=== PATIENT | female | born 1965 | race Caucasian/White ===

== ENCOUNTER 2017-10-31 18:28 | Observation (INO) ==
[2017-10-31] MEDS ORDERED: *HR* HYDROmorphone (PF) 1 MG/ML SYRINGE IVP ONE (19:04)
[2017-10-31] MEDS ORDERED: 0.9 % Sodium Chloride 1,000 ML IVC ONE ×2 (19:04→20:57)
[2017-10-31] MEDS ORDERED: Ondansetron 4 MG/2 ML VIAL IVP ONE (19:04)
--- NOTE | 2017-10-31 19:19 | Emergency Department Note ---
Disposition Clinical Impression: Pancreatitis Qualifiers: Chronicity: acute Pancreatitis type: unspecified pancreatitis type Acute pancreatitis complication: unspecified Qualified Code(s): K85.90 - Acute pancreatitis without necrosis or infection, unspecified Disposition: Admitted As Inpatient Condition: Good Referrals: Nellie Newton CNP [Primary Care Provider] - Abdominal Pain HPI - General Chief Complaint: ED Abdominal Pain Stated Complaint: abd pain Time Seen by Provider: 10/31/17 18:45 Source: patient Mode of arrival: ambulatory Limitations: no limitations Nursing Notes Reviewed: Yes Vital Signs Reviewed: Yes - History of Present Illness HPI Narrative: Patient presents for evaluation of abdominal pain. Patient has had abdominal pain for [address] scan yesterday with abnormal pancreas recommendation for IV contrast scan. Patient received this today which is also abnormal showing pancreatitis is been referred to the emergency department for further evaluation. Patient has no history of pancreatitis. Patient does have previous surgical scar from previous trauma. Patient has a known removal of appendix or other. The patient states that she did have Copt Ary healing from this due to infected surgical mesh. The patient's symptoms are associated with nausea with eating. Nothing is improved her symptoms. The patient states she has diabetes and her blood sugars have been running abnormally high secondary to this. No history of ibuprofen or alcohol use. Pain Scale: 8 - Related Data Home Medications Medication Instructions Recorded Confirmed Atorvastatin [Lipitor] 40 mg PO HS 08/29/16 10/31/17 Black Cohosh 40 mg PO QAM 08/29/16 10/31/17 Docusate [Colace] 100 mg PO BID 08/29/16 10/31/17 Insulin DETEMIR [Levemir Flextouch] 43 unit SQ BID 08/29/16 10/31/17 Metformin HCl [Glucophage] 1,000 mg PO BID 08/29/16 10/31/17 Multivitamin [One Daily Essential] 1 tab PO DAILY 08/29/16 10/31/17 Omeprazole [PriLOSEC] 40 mg PO DAILY 08/29/16 10/31/17 Quetiapine Fumarate [SEROquel] 600 mg PO HS 08/29/16 10/31/17 Venlafaxine HCl [Venlafaxine HCl 150 mg PO BID 08/29/16 10/31/17 ER] Dulaglutide [Trulicity] 0.75 mg SQ TH 10/31/17 10/31/17 Gabapentin [Neurontin] 800 mg PO TID 10/31/17 10/31/17 Insulin ASPART [Novolog Flexpen] 0 - 5 unit SQ TID PRN 10/31/17 10/31/17 Ranitidine HCl [Zantac] 300 mg PO DAILY 10/31/17 10/31/17 Allergies Allergy/AdvReac Type Severity Reaction Status Date / Time No Known Allergies Allergy Verified 10/31/17 18:43 Review of Systems: CONSTITUTIONAL: No weight loss, fever, chills, weakness or fatigue. HEENT: Eyes: No visual changes. Ears, Nose, Throat: No hearing loss, difficulty talking or unable to swallow. SKIN: No rash or itching. CARDIOVASCULAR: No chest pain, chest pressure or chest discomfort. No palpitations or edema. RESPIRATORY: No shortness of breath, cough or sputum. GASTROINTESTINAL: Nausea vomiting and abdominal pain GENITOURINARY: No burning on urination or hematuria. NEUROLOGICAL: No headache, dizziness, syncope, paralysis, ataxia, numbness or tingling in the extremities. No change in bowel or bladder control. MUSCULOSKELETAL: No muscle pain, back pain, joint pain or stiffness. 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: Reports: non-contributory Psychiatric history: Reports: anxiety, bipolar, depression - Social History Smoking status: Current every day smoker Alcohol use: Reports: none Drug use: Reports: none Physical Exam General: Well appearing, nontoxic, no acute distress Head: Normocephalic Atraumatic Eyes: PERRL, EOMI ENT: Airway patent, no stridor Neck: supple, no meningismus Chest: Lungs clear to auscultation bilateral Cardiac: Regular rate and rhythm, no murmurs, rubs or gallops Abdomen: soft, tenderness to the epigastric and right upper quadrant; nondistended; no guarding, rebound, or tenderness to percussion Musculoskeletal: Calves symmetric, nontender, no palpable cord Skin: No rash, normal skin tone Neuro: Alert and Oriented to person, place, and time; No focal deficit, CN 2-12 symmetric and intact - General Limitations: no limitations General appearance: alert, in no apparent distress Course - Reevaluation(s) Reevaluation #1: Patient is having continued pain. Dilaudid shortage. Ketamine will be used. Patient is been educated about pancreatitis. She states she has not had previously. - Consultations Consultation #1: Discussed with Dr. Morgan. Patient accepted for admission. Vital Signs Temperature 99.2 F 10/31/17 18:40 Pulse Rate 118 10/31/17 18:40 Respiratory Rate 16 10/31/17 18:40 Blood Pressure 153/86 10/31/17 18:40 O2 Sat by Pulse Oximetry 96 10/31/17 18:40 Temperature 99.2 F 10/31/17 18:40 Pulse Rate 118 10/31/17 18:40 Respiratory Rate 16 10/31/17 18:40 Blood Pressure 153/86 10/31/17 18:40 O2 Sat by Pulse Oximetry 96 10/31/17 18:40 Oxygen Delivery Oxygen Delivery Room Air Abdominal Pain - Medical Records Medical records reviewed: Yes I reviewed the patient's medical records. - Lab Data Lab results reviewed: Yes I reviewed the patient's lab results. Result diagrams: 10/31/17 19:50 10/31/17 19:50 Lab Results 10/31/17 10/31/17 Range/Units 19:50 19:50 WBC 12.2 H (4.3-11.1) K/mcL RBC 5.43 H (3.82-4.97) M/mcL Hgb 14.6 (11.5-15.4) g/dL Hct 45.2 H (35.3-44.9) % MCV 83.2 (83.0-100.0) fL MCH 26.9 L (28.0-33.3) pg MCHC 32.3 (31.6-35.5) g/dL RDW 15.4 H (11.5-14.5) % Plt Count 356 (140-400) K/mcL MPV 9.8 (9.4-12.4) fL Immature Gran % 0.5 (0-4) % Seg Neutrophils % 53.5 % Lymphocytes % 33.9 % Monocytes % 5.5 % Eosinophils % 5.7 % Basophils % 0.9 % Neutrophils # 6.5 (1.6-8.9) K/mcL Lymphocytes # 4.1 (0.6-4.6) K/mcL Monocytes # 0.7 (0.0-1.3) K/mcL Eosinophils # 0.7 H (0.0-0.6) K/mcL Basophils # 0.1 (0.0-0.2) K/mcL Sodium 135 L (136-145) mEq/L Potassium 3.8 (3.5-5.1) mEq/L Chloride 102 (98-107) mEq/L Carbon Dioxide 25 (23-29) mEq/L BUN 12 (6-20) mg/dL Creatinine 0.83 (0.60-1.20) mg/dL Est GFR ( Amer) > 60 (> 60) Est GFR (Non-Af Amer) > 60 (> 60) BUN/Creatinine Ratio 14 (6-26) Glucose 255 H (70-105) mg/dL Calculated Osmolality 288 (280-300) Calcium 9.3 (8.6-10.3) mg/dL Total Bilirubin 0.2 L (0.3-1.0) mg/dL Direct Bilirubin 0.0 (0.0-0.2) mg/dL Indirect Bilirubin 0.2 (0.0-1.2) mg/dL AST 28 (13-39) Units/L ALT 33 (7-52) Units/L Alkaline Phosphatase 120 H (34-104) Units/L Serum Total Protein 7.1 (6.4-8.9) g/dL Albumin 4.0 (3.5-5.7) g/dL Globulin 3.1 (2.4-3.5) g/dL Albumin/Globulin Ratio 1.3 (1.1-2.2) Amylase 42 (29-103) Units/L Lipase 75 (11-82) Units/L - Radiology Data Radiology results reviewed: Yes I reviewed the patient's radiology results. - EKG Data EKG attestation: Yes I reviewed and interpreted this EKG. EKG results narrative: EKG shows sinus tachycardia with a ventricular rate of 109. NH 104. QRS 108. QTC 416. No ST elevations or depressions.
[2017-10-31 19:58] LABS: Basophils # 0.1 K/mcL (0.0-0.2); Basophils % 0.9 %; Eosinophils # 0.7 K/mcL (0.0-0.6); Eosinophils % 5.7 %; Hematocrit 45.2 % (35.3-44.9); Hemoglobin 14.6 g/dL (11.5-15.4); Immature Granulocytes % 0.5 % (0-4); Lymphocytes # 4.1 K/mcL (0.6-4.6); Lymphocytes % 33.9 %; Mean Corpuscular HGB Conc 32.3 g/dL (31.6-35.5); Mean Corpuscular Hemoglobin 26.9 pg (28.0-33.3); Mean Corpuscular Volume 83.2 fL (83.0-100.0); Mean Platelet Volume 9.8 fL (9.4-12.4); Monocytes # 0.7 K/mcL (0.0-1.3); Monocytes % 5.5 %; Neutrophils # 6.5 K/mcL (1.6-8.9); Platelet Count 356 K/mcL (140-400); Red Blood Count 5.43 M/mcL (3.82-4.97); Red Cell Distribution Width 15.4 % (11.5-14.5); Segmented Neutrophils % 53.5 %
--- NOTE | 2017-10-31 20:04 | Emergency Department Note ---
START Narrative - START START: I examined this patient and my medical decision-making was reviewed with the OCCUPATIONAL HEALTH AND SAFETY MANAGER/PA/Advanced Practice Nurse/Resident Physician. I agree with the documented findings, disposition and treatment plan as described except to the extent set forth below. ED attending note: Patient seen with emergency medicine resident Dr. Jesus Simpson. We independently evaluated the patient. We independently had face-to- face contact with the patient. Please see a copy of his note for details of the history and physical, evaluation, management and disposition of this emergency Department patient. Briefly: 52-year-old female presents epigastric pain nausea and vomiting. No prior history of pancreatitis. Has mild epigastric tenderness. Getting screening labs, antiemetics, and analgesics. Disposition pending. Although admission is being entertained. Patient stable
[2017-10-31 20:14] LABS: Alanine Aminotransferase 33 Units/L (7-52); Albumin/Globulin Ratio 1.3 (1.1-2.2); Alkaline Phosphatase 120 Units/L (34-104); Amylase 42 Units/L (29-103); Aspartate Amino Transferase 28 Units/L (13-39); BUN/Creatinine Ratio 14 (6-26); Bilirubin,Indirect 0.2 mg/dL (0.0-1.2); Bilirubin,Total 0.2 mg/dL (0.3-1.0); Blood Urea Nitrogen 12 mg/dL (6-20); Calcium 9.3 mg/dL (8.6-10.3); Carbon Dioxide 25 mEq/L (23-29); Chloride 102 mEq/L (98-107); Globulin 3.1 g/dL (2.4-3.5); Glucose 255 mg/dL (70-105); Lipase 75 Units/L (11-82); Osmolality,Calculated 288 (280-300); Potassium 3.8 mEq/L (3.5-5.1); Sodium 135 mEq/L (136-145); Total Protein 7.1 g/dL (6.4-8.9); eGFR For African Americans > 60 (> 60); eGFR For Non-African Americans > 60 (> 60)
[2017-10-31] MEDS ORDERED: Ketamine *HR* 20 MG in 0.9 % Sodium Chloride 100 ML IVPB ONE (20:19)
[2017-10-31] MEDS ORDERED: Naloxone 0.4 MG/ML INJ IVP PRN (22:38)
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
[2017-10-31] MEDS ORDERED: D5% in Water 1,000 ML IVC PRN (22:43)
[2017-10-31] MEDS ORDERED: *HR* Dextrose 50 % in Water (Syg) 50 ML SYRINGE IVP PRN (22:43)
[2017-10-31] MEDS ORDERED: Dextrose Gel 15 GM/37.5 ML TUBE PO PRN ×2 (22:43)
[2017-11-01] MEDS ORDERED: Ketorolac 30 MG/ML VIAL IVP ONE (01:35)
[2017-11-01] MEDS ORDERED: OXYCODONE Oral CONC 10 MG/0.5 ML ORAL.SYG SL ONE (03:08)
[2017-11-01] MEDS: 0.9 % Sodium Chloride 1,000 ML IVC SCH ×3 (03:46→19:25)
[2017-11-01 05:00] LABS: Basophils # 0.1 K/mcL (0.0-0.2); Eosinophils # 0.6 K/mcL (0.0-0.6); Hematocrit 41.1 % (35.3-44.9); Hemoglobin 13.3 g/dL (11.5-15.4); Immature Granulocytes % 0.4 % (0-4); Lymphocytes % 32.5 %; Mean Corpuscular HGB Conc 32.4 g/dL (31.6-35.5); Mean Corpuscular Hemoglobin 27.2 pg (28.0-33.3); Mean Platelet Volume 10.1 fL (9.4-12.4); Monocytes # 0.6 K/mcL (0.0-1.3); Monocytes % 6.5 %; Neutrophils # 4.8 K/mcL (1.6-8.9); Platelet Count 304 K/mcL (140-400); Red Blood Count 4.89 M/mcL (3.82-4.97); Red Cell Distribution Width 15.6 % (11.5-14.5); Segmented Neutrophils % 52.6 %
[2017-11-01 05:27] LABS: Alanine Aminotransferase 27 Units/L (7-52); Albumin 3.5 g/dL (3.5-5.7); Albumin/Globulin Ratio 1.3 (1.1-2.2); Alkaline Phosphatase 108 Units/L (34-104); Aspartate Amino Transferase 22 Units/L (13-39); BUN/Creatinine Ratio 16 (6-26); Bilirubin,Total 0.2 mg/dL (0.3-1.0); Blood Urea Nitrogen 11 mg/dL (6-20); Calcium 8.8 mg/dL (8.6-10.3); Carbon Dioxide 25 mEq/L (23-29); Chloride 106 mEq/L (98-107); Cholesterol 161 mg/dL (< 200); Globulin 2.7 g/dL (2.4-3.5); Glucose 290 mg/dL (70-105); HDL Cholesterol 32 mg/dL (40-59); Osmolality,Calculated 300 (280-300); Potassium 3.6 mEq/L (3.5-5.1); Sodium 140 mEq/L (136-145); Total Protein 6.2 g/dL (6.4-8.9); Triglycerides 424 mg/dL (< 150); eGFR For African Americans > 60 (> 60); eGFR For Non-African Americans > 60 (> 60)
[2017-11-01] MEDS: Insulin LISPRO 300 UNITS/3 ML VIAL SQ SCH ×4 (06:00→18:15)
[2017-11-01] MEDS: Gabapentin 400 MG CAPSULE PO SCH ×3 (07:57→20:02)
[2017-11-01] MEDS: *HR* Heparin 5,000 UNIT/ML VIAL SQ SCH ×2 (08:20→18:15)
[2017-11-01] MEDS: Pantoprazole 40 MG VIAL IVP SCH (08:20)
[2017-11-01] MEDS: OXYCODONE Oral CONC 10 MG/0.5 ML ORAL.SYG SL PRN ×3 (08:22→22:54)
[2017-11-01] MEDS: Ketorolac 15 MG/ML VIAL IVP PRN (12:15)
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
[2017-11-01] MEDS: *HR* FentaNYL (PF) 100 MCG/2 ML VIAL IVP PRN ×2 (16:10→20:03)
[2017-11-01] MEDS: 0.9 % Sodium Chloride w KCl 20 MEQ/1,000 ML MLS IVC SCH (16:34)
[2017-11-02] MEDS: Insulin LISPRO 300 UNITS/3 ML VIAL SQ SCH ×4 (00:42→17:32)
[2017-11-02] MEDS: *HR* Heparin 5,000 UNIT/ML VIAL SQ SCH ×2 (05:59→17:32)
[2017-11-02] MEDS: *HR* FentaNYL (PF) 100 MCG/2 ML VIAL IVP PRN ×2 (06:00→10:35)
[2017-11-02] MEDS: Pantoprazole 40 MG VIAL IVP SCH (08:05)
[2017-11-02] MEDS: Gabapentin 400 MG CAPSULE PO SCH ×3 (08:17→19:40)
[2017-11-02 09:31] LABS: Hematocrit 42.9 % (35.3-44.9); Hemoglobin 13.3 g/dL (11.5-15.4); Mean Corpuscular Hemoglobin 26.7 pg (28.0-33.3); Mean Corpuscular Volume 86.1 fL (83.0-100.0); Mean Platelet Volume 9.8 fL (9.4-12.4); Platelet Count 290 K/mcL (140-400); Red Blood Count 4.98 M/mcL (3.82-4.97); Red Cell Distribution Width 15.7 % (11.5-14.5)
[2017-11-02 09:49] LABS: Alanine Aminotransferase 28 Units/L (7-52); Albumin 3.4 g/dL (3.5-5.7); Albumin/Globulin Ratio 1.3 (1.1-2.2); Alkaline Phosphatase 101 Units/L (34-104); Amylase 21 Units/L (29-103); Aspartate Amino Transferase 28 Units/L (13-39); BUN/Creatinine Ratio 10 (6-26); Bilirubin,Total 0.2 mg/dL (0.3-1.0); Blood Urea Nitrogen 7 mg/dL (6-20); Calcium 9.1 mg/dL (8.6-10.3); Carbon Dioxide 24 mEq/L (23-29); Chloride 112 mEq/L (98-107); Globulin 2.7 g/dL (2.4-3.5); Glucose 282 mg/dL (70-105); Lipase 33 Units/L (11-82); Osmolality,Calculated 300 (280-300); Potassium 4.3 mEq/L (3.5-5.1); Sodium 141 mEq/L (136-145); Total Protein 6.1 g/dL (6.4-8.9); eGFR For African Americans > 60 (> 60); eGFR For Non-African Americans > 60 (> 60)
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
[2017-11-02] MEDS: 0.9 % Sodium Chloride w KCl 20 MEQ/1,000 ML MLS IVC SCH ×2 (13:58→19:19)
[2017-11-02] MEDS: Ketorolac 15 MG/ML VIAL IVP PRN ×2 (14:47→23:25)
[2017-11-02] MEDS: OXYCODONE Oral CONC 10 MG/0.5 ML ORAL.SYG SL PRN (18:47)
[2017-11-03] MEDS: Insulin LISPRO 300 UNITS/3 ML VIAL SQ SCH ×5 (01:12→22:57)
[2017-11-03] MEDS: OXYCODONE Oral CONC 10 MG/0.5 ML ORAL.SYG SL PRN ×2 (01:12→10:34)
[2017-11-03] MEDS ORDERED: *HR* FentaNYL (PF) 100 MCG/2 ML VIAL IVP ONE ×2 (04:55→12:25)
[2017-11-03] MEDS: *HR* Heparin 5,000 UNIT/ML VIAL SQ SCH ×2 (05:04→17:17)
[2017-11-03] MEDS: 0.9 % Sodium Chloride w KCl 20 MEQ/1,000 ML MLS IVC SCH (05:05)
[2017-11-03 05:43] LABS: Alanine Aminotransferase 26 Units/L (7-52); Albumin 3.3 g/dL (3.5-5.7); Alkaline Phosphatase 88 Units/L (34-104); Aspartate Amino Transferase 27 Units/L (13-39); BUN/Creatinine Ratio 10 (6-26); Bilirubin,Total 0.3 mg/dL (0.3-1.0); Blood Urea Nitrogen 7 mg/dL (6-20); Calcium 8.9 mg/dL (8.6-10.3); Carbon Dioxide 23 mEq/L (23-29); Chloride 111 mEq/L (98-107); Glucose 214 mg/dL (70-105); Osmolality,Calculated 294 (280-300); Potassium 4.1 mEq/L (3.5-5.1); Sodium 140 mEq/L (136-145); Total Protein 5.8 g/dL (6.4-8.9); eGFR For African Americans > 60 (> 60); eGFR For Non-African Americans > 60 (> 60)
[2017-11-03 05:44] LABS: Albumin/Globulin Ratio 1.3 (1.1-2.2); Amylase 20 Units/L (29-103); Globulin 2.5 g/dL (2.4-3.5); Lipase 25 Units/L (11-82)
[2017-11-03] MEDS: Gabapentin 400 MG CAPSULE PO SCH ×3 (08:35→20:13)
[2017-11-03] MEDS: Pantoprazole 40 MG VIAL IVP SCH (08:35)
[2017-11-03] MEDS: Ketorolac 15 MG/ML VIAL IVP PRN (08:35)
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
[2017-11-03] MEDS: *HR* OxyCODONE/APAP 5/325 TABLET PO PRN ×2 (17:17→22:54)
[2017-11-04] MEDS: Insulin LISPRO 300 UNITS/3 ML VIAL SQ SCH ×2 (05:41→11:35)
[2017-11-04] MEDS: *HR* Heparin 5,000 UNIT/ML VIAL SQ SCH (05:41)
[2017-11-04] MEDS: *HR* OxyCODONE/APAP 5/325 TABLET PO PRN ×2 (05:42→11:34)
[2017-11-04 10:10] VITALS: BP 157/93
[2017-11-04] MEDS: Pantoprazole 40 MG VIAL IVP SCH (11:34)
[2017-11-04] MEDS: Gabapentin 400 MG CAPSULE PO SCH (11:35)
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
--- NOTE | 2017-11-04 17:52 | Electrocardiograph Report ---
[address] [address] Test Date: 2017-10-31 Pat Name: Shanique Joshi Department: 103 Room: 3B Gender: F [employer] Room Attendant: HARSH : 1965 Requested By: Winston Simpson Order Number: [id number] Reading MD: Kelby Kaplan Measurements Intervals [place] Rate: 109 P: 55 [place]: 104 QRS: 57 QRSD: 108 T: 40 QT: 352 QTc: 416 Interpretive Statements SINUS TACHYCARDIA WITH NONSPECIFIC ST & T-WAVE ABNORMALITY ABNORMAL RHYTHM ECG Electronically Signed On 11-04-2017 17:50:58 EST by Kelby Kaplan
[2017-11-06 07:49] LABS: Immunoglobulin G Subclass 1 261 mg/dL (240-1118); Immunoglobulin G Subclass 2 196 mg/dL (124-549); Immunoglobulin G Subclass 3 37 mg/dL (21-134); Immunoglobulin G Subclass 4 18 mg/dL (1-123)
[2017-11-06 14:44] LABS: ANA IgG by ELISA NONE DETECTED (None Detected)
== END 2017-11-04 14:00 | disposition home or self-care (01) | DRG 440 ==
LOC: EMEROO 18:28 → 3BNU 18:28
PROVIDERS: ADMIT Pediatrics; ATTEND Registered Nurse

== ENCOUNTER 2018-07-17 07:20 | Observation (INO) ==
--- NOTE | 2018-07-17 07:33 | Emergency Department Note ---
Disposition Clinical Impression: Hyperglycemia Community acquired pneumonia Qualifiers: Laterality: right Lung location: lower lobe of lung Qualified Code(s): J18.1 - Lobar pneumonia, unspecified organism Urinary tract infection Qualifiers: Urinary tract infection type: acute cystitis Hematuria presence: without hematuria Qualified Code(s): N30.00 - Acute cystitis without hematuria Disposition: Admitted As Inpatient Condition: Fair Referrals: Nellie Newton HELMET BINDER [Primary Care Provider] - Time of Disposition: 10:02 General Adult HPI - General Stated complaint: Hyperglymecia Time Seen by Provider: 07/17/18 07:22 Source: patient Mode of arrival: EMS Limitations: no limitations Nursing Notes Reviewed: Yes Vital Signs Reviewed: Yes - History of Present Illness HPI Narrative: Alert and oriented Nontoxic-appearing 52-year-old female is brought by EMS for evaluation of hyperglycemia and a near syncopal episode. The patient states she awoke this morning and checked her blood glucose level. She states that this level was greater than 500. She administered 64 units of Lantus and made herself and exam which. She states that shortly after eating exam which, she began to feel lightheaded. She states that she tried to make it from the kitchen to her chair before "falling out". She states that she got increasingly lightheaded and had to lower herself to the ground on her knees. She denies any actual syncopal episode. She denies any associated fever, chills, nausea, vomiting, abdominal pain, chest pain, palpitations, or shortness of breath. She does complain of a persistent nonproductive cough for the past several days. She denies any urinary symptoms. She states that it is normal for her to have "falling out" episodes whenever her blood glucose level is out of normal range, either hypoglycemic or hyperglycemic. 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 Denies: chest pain, diaphoresis, fever/chills, headaches, nausea/vomiting, shortness of breath, weakness - Related Data Home Medications Medication Instructions Recorded Confirmed Atorvastatin [Lipitor] 40 mg PO HS 08/29/16 07/17/18 Black Cohosh 40 mg PO QAM 08/29/16 07/17/18 Docusate [Colace] 100 mg PO BID 08/29/16 07/17/18 Insulin DETEMIR [Levemir Flextouch] 43 unit SQ BID 08/29/16 07/17/18 Metformin HCl [Glucophage] 1,000 mg PO BID 08/29/16 07/17/18 Multivitamin [One Daily Essential] 1 tab PO DAILY 08/29/16 07/17/18 Venlafaxine HCl [Venlafaxine HCl 150 mg PO BID 08/29/16 07/17/18 ER] Gabapentin [Neurontin] 800 mg PO TID 10/31/17 07/17/18 Insulin ASPART [Novolog Flexpen] 0 - 5 unit SQ TID PRN 10/31/17 07/17/18 Ranitidine HCl [Zantac] 300 mg PO DAILY 10/31/17 07/17/18 ALPRAZolam [Xanax 1 MG Tablet] 1 mg PO BID PRN 07/17/18 07/17/18 Benztropine Mesylate 0.5 mg PO BID 07/17/18 07/17/18 Diclofenac Sodium [Voltaren] 50 mg PO Q8HR PRN 07/17/18 07/17/18 Fenofibrate [Tricor] 54 mg PO DAILY 07/17/18 07/17/18 Guanfacine HCl 1 mg PO DAILY 07/17/18 07/17/18 HydrOXYzine 10 mg PO QID 07/17/18 07/17/18 Lurasidone HCl [Latuda] 60 mg PO DAILY 07/17/18 07/17/18 Pantoprazole Sodium [Protonix] 40 mg PO DAILY 07/17/18 07/17/18 Quetiapine Fumarate [SEROquel] 200 mg PO HS 07/17/18 07/17/18 Allergies Allergy/AdvReac Type Severity Reaction Status Date / Time No Known Allergies Allergy Verified 06/05/18 09:17 All systems ED: reviewed and negative except as stated. Review of Systems: As Per HPI Constitutional: Denies: fever, chills, weakness, weight change Eyes: Denies: eye pain, eye discharge, vision change ENT ED: Denies: ear pain, throat pain, dental pain, hearing loss, epistaxis, congestion, dysphagia Cardiovascular: Denies: chest pain, palpitations, dyspnea on exertion, edema, syncope Respiratory: Denies: cough, dyspnea, wheezes, hemoptysis, stridor Gastrointestinal: Denies: abdominal pain, nausea, vomiting, diarrhea, constipation, hematemesis, melena, hematochezia Genitourinary: Denies: dysuria, frequency, hematuria, discharge Musculoskeletal: Denies: back pain, neck pain, arthralgia, myalgia Integumentary: Denies: rash, abrasion, lesions Neurological: Denies: headache, weakness, numbness, paresthesias, confusion, abnormal gait, vertigo Psychiatric: Denies: anxiety, depression, suicidal thoughts, homicidal thoughts, auditory hallucinations, visual hallucinations Endocrine: Reports: as per HPI, other (Hyperglycemia). Denies: fatigue Hematological/Lymphatic: Denies: easy bleeding, easy bruising Allergic/Immunologic: Denies: facial swelling, urticaria Past Medical History - Past Medical History Attestation: Yes The following information was validated with the patient. Source: patient, nursing notes reviewed Medical history: Reports: asthma, diabetes, GERD, hyperlipidemia, hypertension Surgical history: Reports: hysterectomy, knee replacement, ARMOND/BSO, other Psychiatric history: Reports: anxiety, ADHD, bipolar, depression MATE SHIP history: Reports: non-contributory - Social History Smoking Status: Current every day smoker Smokeless Tobacco Status: No Alcohol use: Reports: none Drug use: Reports: none Physical Exam - General Limitations: no limitations General appearance: alert, in no apparent distress - Head Head exam: atraumatic, normocephalic, normal inspection - Eye Eye exam: Present: normal appearance, PERRL, EOMI. Absent: nystagmus - Expanded Eye Exam Pupils: Bilateral: regular, round, reactive, size (4) - ENT ENT exam: mucous membranes moist - Neck Neck exam: Present: normal inspection, full ROM, trachea midline - Chest Chest inspection: Present: normal inspection, symmetric chest wall rise - Respiratory Respiratory exam: Present: normal lung sounds bilaterally. Absent: respiratory distress, wheezes, stridor, accessory muscle use, prolonged expiratory phase - Cardiovascular Cardiovascular exam: Present: regular rate, normal rhythm, normal heart sounds - Abdominal Exam Abdominal exam: Present: soft, Non-Tender, normal bowel sounds - Extremities Exam Extremities exam: Present: normal inspection, full ROM. Absent: tenderness, pedal edema - Neurological Exam Neurological exam: Present: alert, oriented X3 - Expanded Neurological Exam Patient oriented to: Present: person, place, time Motor strength - LUE: 5/5 Motor strength - RUE: 5/5 Motor strength - LLE: 5/5 Motor strength - RLE: 5/5 Coma Scale Eye Opening: Spontaneous Coma Scale Motor Response: Obeys Commands Coma Scale Verbal Response: Oriented Coma Scale Total: 15 - Psychiatric Psychiatric exam: Present: normal affect, normal mood - Skin Skin exam: Present: warm, dry, intact, normal color. Absent: rash, diaphoresis, pallor Course Course Narrative: 0945: I spoke with Dr. Trimble of the Hospital services accepted the patient for permission to the hospitalist care for further management and evaluation. I have also discussed this patient's case with Dr. Enedina Patten ED attending. Dr. Enedina Patten has had a [id number] evaluation with patient and agrees with this plan. Vital Signs Temperature 98.6 F 07/17/18 07:26 Pulse Rate 88 07/17/18 07:26 Respiratory Rate 18 07/17/18 07:26 Blood Pressure 100/66 07/17/18 07:26 O2 Sat by Pulse Oximetry 94 07/17/18 07:26 Temperature 98.6 F 07/17/18 07:26 Pulse Rate 79 07/17/18 09:17 Respiratory Rate 18 07/17/18 09:17 Blood Pressure 117/79 07/17/18 09:17 O2 Sat by Pulse Oximetry 93 07/17/18 09:17 Oxygen Delivery Oxygen Delivery Room Air Medical Decision Making - Medical Records Medical records reviewed: Yes I reviewed the patient's medical records. - Lab Data Lab results reviewed: Yes I reviewed the patient's lab results. Lab results narrative: Lab Results 07/17/18 07/17/18 07/17/18 Range/Units 07:41 07:41 07:41 WBC 13.8 H (4.3-11.1) K/mcL RBC 4.98 H (3.82-4.97) M/mcL Hgb 13.2 (11.5-15.4) g/dL Hct 40.8 (35.3-44.9) % MCV 81.9 L (83.0-100.0) fL MCH 26.5 L (28.0-33.3) pg MCHC 32.4 (31.6-35.5) g/dL RDW 15.5 H (11.5-14.5) % Plt Count 488 H (140-400) K/mcL MPV 10.1 (9.4-12.4) fL Immature Gran % 0.4 (0-4) % Seg Neutrophils % 64.3 % Lymphocytes % 26.7 % Monocytes % 4.1 % Eosinophils % 3.8 % Basophils % 0.7 % Neutrophils # 8.9 (1.6-8.9) K/mcL Lymphocytes # 3.7 (0.6-4.6) K/mcL Monocytes # 0.6 (0.0-1.3) K/mcL Eosinophils # 0.5 (0.0-0.6) K/mcL Basophils # 0.1 (0.0-0.2) K/mcL VBG pH (7.32-7.42) pH Units VBG pCO2 (41-51) mmHg VBG pO2 (25-50) mmHg VBG HCO3 (21-27) mEq/L Sodium 131 L (136-145) mEq/L Potassium 4.4 (3.5-5.1) mEq/L Chloride 95 L (98-107) mEq/L Carbon Dioxide 25 (23-29) mEq/L BUN 21 H (6-20) mg/dL Creatinine 1.11 (0.60-1.20) mg/dL Est GFR ( Amer) > 60 (> 60) Est GFR (Non-Af Amer) 52 L (> 60) BUN/Creatinine Ratio 19 (6-26) Glucose 550 H* (70-105) mg/dL Calculated Osmolality 300 (280-300) Lactic Acid (0.5-2.2) mmol/L Calcium 9.7 (8.6-10.3) mg/dL Magnesium 1.9 (1.6-2.6) mg/dL Troponin I < 0.03 (< 0.04) ng/mL Beta-Hydroxybutyric Acd 0.24 (0.02-0.27) mmol/L Urine Color (Yellow) Urine Clarity (Clear) Urine pH (5.0-8.0) pH Units Ur Specific [place] (1.010-1.025) Urine Protein (Neg-Trace) mg/dL Urine Glucose (UA) (Normal) mg/dL Urine Ketones (Negative) mg/dL Urine Blood (Negative) Urine Nitrite (Negative) Urine Bilirubin (Negative) Urine Urobilinogen (Normal) mg/dL Ur Leukocyte Esterase (Negative) Urine Microscopic RBC (0-3) per hpf Urine Microscopic WBC (0-3) per hpf Ur Squamous Epith Cells (None-Few) per lpf Urine Bacteria (None-Few) per hpf Hyaline Casts (None-Few) per lpf Ur Culture Indicated? (NO) 07/17/18 07/17/18 07/17/18 Range/Units 07:54 08:01 08:36 WBC (4.3-11.1) K/mcL RBC (3.82-4.97) M/mcL Hgb (11.5-15.4) g/dL Hct (35.3-44.9) % MCV (83.0-100.0) fL MCH (28.0-33.3) pg MCHC (31.6-35.5) g/dL RDW (11.5-14.5) % Plt Count (140-400) K/mcL MPV (9.4-12.4) fL Immature Gran % (0-4) % Seg Neutrophils % % Lymphocytes % % Monocytes % % Eosinophils % % Basophils % % Neutrophils # (1.6-8.9) K/mcL Lymphocytes # (0.6-4.6) K/mcL Monocytes # (0.0-1.3) K/mcL Eosinophils # (0.0-0.6) K/mcL Basophils # (0.0-0.2) K/mcL VBG pH 7.36 (7.32-7.42) pH Units VBG pCO2 47 (41-51) mmHg VBG pO2 62 H (25-50) mmHg VBG HCO3 26 (21-27) mEq/L Sodium (136-145) mEq/L Potassium (3.5-5.1) mEq/L Chloride (98-107) mEq/L Carbon Dioxide (23-29) mEq/L BUN (6-20) mg/dL Creatinine (0.60-1.20) mg/dL Est GFR ( Amer) (> 60) Est GFR (Non-Af Amer) (> 60) BUN/Creatinine Ratio (6-26) Glucose (70-105) mg/dL Calculated Osmolality (280-300) Lactic Acid 2.3 H (0.5-2.2) mmol/L Calcium (8.6-10.3) mg/dL Magnesium (1.6-2.6) mg/dL Troponin I (< 0.04) ng/mL Beta-Hydroxybutyric Acd (0.02-0.27) mmol/L Urine Color Yellow (Yellow) Urine Clarity Cloudy A (Clear) Urine pH 6.5 (5.0-8.0) pH Units Ur Specific [place] 1.018 (1.010-1.025) Urine Protein Negative (Neg-Trace) mg/dL Urine Glucose (UA) >=1000 H (Normal) mg/dL Urine Ketones Negative (Negative) mg/dL Urine Blood Negative (Negative) Urine Nitrite Negative (Negative) Urine Bilirubin Negative (Negative) Urine Urobilinogen Normal (Normal) mg/dL Ur Leukocyte Esterase Small H (Negative) Urine Microscopic RBC 0-3 (0-3) per hpf Urine Microscopic WBC 30-50 H (0-3) per hpf Ur Squamous Epith Cells Many H (None-Few) per lpf Urine Bacteria Moderate H (None-Few) per hpf Hyaline Casts None Seen (None-Few) per lpf Ur Culture Indicated? NO. A (NO) Result diagrams: 07/17/18 07:41 07/17/18 07:41 Lab Results 07/17/18 07/17/18 07/17/18 Range/Units 07:41 07:41 07:41 WBC 13.8 H (4.3-11.1) K/mcL RBC 4.98 H (3.82-4.97) M/mcL Hgb 13.2 (11.5-15.4) g/dL Hct 40.8 (35.3-44.9) % MCV 81.9 L (83.0-100.0) fL MCH 26.5 L (28.0-33.3) pg MCHC 32.4 (31.6-35.5) g/dL RDW 15.5 H (11.5-14.5) % Plt Count 488 H (140-400) K/mcL MPV 10.1 (9.4-12.4) fL Immature Gran % 0.4 (0-4) % Seg Neutrophils % 64.3 % Lymphocytes % 26.7 % Monocytes % 4.1 % Eosinophils % 3.8 % Basophils % 0.7 % Neutrophils # 8.9 (1.6-8.9) K/mcL Lymphocytes # 3.7 (0.6-4.6) K/mcL Monocytes # 0.6 (0.0-1.3) K/mcL Eosinophils # 0.5 (0.0-0.6) K/mcL Basophils # 0.1 (0.0-0.2) K/mcL VBG pH (7.32-7.42) pH Units VBG pCO2 (41-51) mmHg VBG pO2 (25-50) mmHg VBG HCO3 (21-27) mEq/L Sodium 131 L (136-145) mEq/L Potassium 4.4 (3.5-5.1) mEq/L Chloride 95 L (98-107) mEq/L Carbon Dioxide 25 (23-29) mEq/L BUN 21 H (6-20) mg/dL Creatinine 1.11 (0.60-1.20) mg/dL Est GFR ( Amer) > 60 (> 60) Est GFR (Non-Af Amer) 52 L (> 60) BUN/Creatinine Ratio 19 (6-26) Glucose 550 H* (70-105) mg/dL Calculated Osmolality 300 (280-300) Lactic Acid (0.5-2.2) mmol/L Calcium 9.7 (8.6-10.3) mg/dL Magnesium 1.9 (1.6-2.6) mg/dL Troponin I < 0.03 (< 0.04) ng/mL Beta-Hydroxybutyric Acd 0.24 (0.02-0.27) mmol/L Urine Color (Yellow) Urine Clarity (Clear) Urine pH (5.0-8.0) pH Units Ur Specific [place] (1.010-1.025) Urine Protein (Neg-Trace) mg/dL Urine Glucose (UA) (Normal) mg/dL Urine Ketones (Negative) mg/dL Urine Blood (Negative) Urine Nitrite (Negative) Urine Bilirubin (Negative) Urine Urobilinogen (Normal) mg/dL Ur Leukocyte Esterase (Negative) Urine Microscopic RBC (0-3) per hpf Urine Microscopic WBC (0-3) per hpf Ur Squamous Epith Cells (None-Few) per lpf Urine Bacteria (None-Few) per hpf Hyaline Casts (None-Few) per lpf Ur Culture Indicated? (NO) 07/17/18 07/17/18 07/17/18 Range/Units 07:54 08:01 08:36 WBC (4.3-11.1) K/mcL RBC (3.82-4.97) M/mcL Hgb (11.5-15.4) g/dL Hct (35.3-44.9) % MCV (83.0-100.0) fL MCH (28.0-33.3) pg MCHC (31.6-35.5) g/dL RDW (11.5-14.5) % Plt Count (140-400) K/mcL MPV (9.4-12.4) fL Immature Gran % (0-4) % Seg Neutrophils % % Lymphocytes % % Monocytes % % Eosinophils % % Basophils % % Neutrophils # (1.6-8.9) K/mcL Lymphocytes # (0.6-4.6) K/mcL Monocytes # (0.0-1.3) K/mcL Eosinophils # (0.0-0.6) K/mcL Basophils # (0.0-0.2) K/mcL VBG pH 7.36 (7.32-7.42) pH Units VBG pCO2 47 (41-51) mmHg VBG pO2 62 H (25-50) mmHg VBG HCO3 26 (21-27) mEq/L Sodium (136-145) mEq/L Potassium (3.5-5.1) mEq/L Chloride (98-107) mEq/L Carbon Dioxide (23-29) mEq/L BUN (6-20) mg/dL Creatinine (0.60-1.20) mg/dL Est GFR ( Amer) (> 60) Est GFR (Non-Af Amer) (> 60) BUN/Creatinine Ratio (6-26) Glucose (70-105) mg/dL Calculated Osmolality (280-300) Lactic Acid 2.3 H (0.5-2.2) mmol/L Calcium (8.6-10.3) mg/dL Magnesium (1.6-2.6) mg/dL Troponin I (< 0.04) ng/mL Beta-Hydroxybutyric Acd (0.02-0.27) mmol/L Urine Color Yellow (Yellow) Urine Clarity Cloudy A (Clear) Urine pH 6.5 (5.0-8.0) pH Units Ur Specific [place] 1.018 (1.010-1.025) Urine Protein Negative (Neg-Trace) mg/dL Urine Glucose (UA) >=1000 H (Normal) mg/dL Urine Ketones Negative (Negative) mg/dL Urine Blood Negative (Negative) Urine Nitrite Negative (Negative) Urine Bilirubin Negative (Negative) Urine Urobilinogen Normal (Normal) mg/dL Ur Leukocyte Esterase Small H (Negative) Urine Microscopic RBC 0-3 (0-3) per hpf Urine Microscopic WBC 30-50 H (0-3) per hpf Ur Squamous Epith Cells Many H (None-Few) per lpf Urine Bacteria Moderate H (None-Few) per hpf Hyaline Casts None Seen (None-Few) per lpf Ur Culture Indicated? NO. A (NO) - Radiology Data Radiology results reviewed: Yes I reviewed the patient's radiology results. Chest X-Ray 07/17/18 07:27 IMPRESSION: Mild streaky right basilar opacity may relate to atelectasis or developing infiltrate. Clinical correlation suggested. D/ / 07/17/2018 07:56:10 Sami Kaur MD / Poly Mukherjee Interpreting Provider: Sami Kaur MD - EKG Data EKG #1 EKG attestation: Yes I reviewed and interpreted this EKG. EKG results narrative: EKG shows a normal sinus rhythm at a rate of 86 bpm (despite an erroneous automatic reading of atrial fibrillation, there are obvious P waves). QRS duration 95, QT/QTc interval 33/459. No ectopy noted. No ST elevation. Attestation Statement - Attestation Attestation: I, Kelby Patten, examined this patient and my medical decision-making was reviewed with the COMMERCIAL SALES DIRECTOR/PA/Advanced Practice Nurse/Resident Physician. I agree with the documented findings, disposition and treatment plan as described except to the extent set forth below. 52-year-old female presents emergency Department with concerns of elevated blood sugar. Patient takes Lantus, NovoLog and metformin for diabetes. Her sugars greater than 500 and emergency department today. She reports a persistent cough that is productive of yellow-green sputum over the past 2-3 weeks. Laboratory evaluation she has a likely pneumonia. Has not been admitted to the hospital within the past 3 months. Patient also has a possible urinary tract infection. She did not have an anion gap however she had an elevated lactic acid level. She will be admitted to the hospital for further care and evaluation of likely HHS. Given ceftriaxone and azithromycin in the emergency department.
[2018-07-17 08:02] LABS: VBG HCO3 26 mEq/L (21-27); VBG PCO2 47 mmHg (41-51); VBG PH 7.36 pH Units (7.32-7.42); VBG PO2 62 mmHg (25-50)
[2018-07-17 08:11] LABS: Basophils # 0.1 K/mcL (0.0-0.2); Basophils % 0.7 %; Eosinophils # 0.5 K/mcL (0.0-0.6); Eosinophils % 3.8 %; Hematocrit 40.8 % (35.3-44.9); Hemoglobin 13.2 g/dL (11.5-15.4); Immature Granulocytes % 0.4 % (0-4); Lymphocytes # 3.7 K/mcL (0.6-4.6); Lymphocytes % 26.7 %; Mean Corpuscular HGB Conc 32.4 g/dL (31.6-35.5); Mean Corpuscular Hemoglobin 26.5 pg (28.0-33.3); Mean Corpuscular Volume 81.9 fL (83.0-100.0); Mean Platelet Volume 10.1 fL (9.4-12.4); Monocytes # 0.6 K/mcL (0.0-1.3); Monocytes % 4.1 %; Neutrophils # 8.9 K/mcL (1.6-8.9); Platelet Count 488 K/mcL (140-400); Red Blood Count 4.98 M/mcL (3.82-4.97); Red Cell Distribution Width 15.5 % (11.5-14.5); Segmented Neutrophils % 64.3 %
[2018-07-17 08:14] LABS: Bilirubin,Urine Negative (Negative); Blood,Urine Negative (Negative); Clarity,Urine Cloudy (Clear); Color,Urine Yellow (Yellow); Glucose,Urine (UA) >=1000 mg/dL (Normal); Ketones,Urine Negative (Negative); Leukocyte Esterase,Urine Small (Negative); Nitrite,Urine Negative (Negative); PH,Urine 6.5 pH Units (5.0-8.0); Protein,Urine Negative (Neg-Trace); Specific Gravity,Urine 1.018 (1.010-1.025); Urobilinogen,Urine Normal (Normal)
[2018-07-17 08:17] LABS: Bacteria,Urine Moderate per hpf (None-Few); Hyaline Casts,Urine None Seen per lpf (None-Few); RBC,Urine 0-3 per hpf (0-3); Squamous Epithelial Cell,Urine Many per lpf (None-Few); WBC,Urine 30-50 per hpf (0-3)
[2018-07-17 08:22] LABS: Troponin I < 0.03 ng/mL (< 0.04)
[2018-07-17] MEDS: 0.9 % Sodium Chloride 1,000 ML IVC SCH ×3 (08:25→12:09)
[2018-07-17 08:27] LABS: BUN/Creatinine Ratio 19 (6-26); Blood Urea Nitrogen 21 mg/dL (6-20); Calcium 9.7 mg/dL (8.6-10.3); Carbon Dioxide 25 mEq/L (23-29); Chloride 95 mEq/L (98-107); Glucose 550 mg/dL (70-105); Magnesium 1.9 mg/dL (1.6-2.6); Osmolality,Calculated 300 (280-300); Potassium 4.4 mEq/L (3.5-5.1); Sodium 131 mEq/L (136-145); eGFR For Non-African Americans 52 (> 60)
[2018-07-17] MEDS ORDERED: Azithromycin 500 MG in D5% in Water 250 ML IVPB ONE (08:55)
[2018-07-17] MEDS ORDERED: cefTRIAXone 1,000 MG in 0.9 % Sodium Chloride Mini Bag 100 ML IVPB ONE (08:55)
[2018-07-17] MEDS ORDERED: Insulin Human Regular 10 UNIT in 0.9 % Sodium Chloride 10 ML IV ONE (08:55)
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
[2018-07-17] MEDS ORDERED: Naloxone 0.4 MG/ML INJ IVP PRN (10:53)
[2018-07-17] MEDS ORDERED: Dextrose Gel 15 GM/37.5 ML TUBE PO PRN ×2 (10:58)
[2018-07-17] MEDS ORDERED: D5% in Water 1,000 ML IVC PRN (10:58)
[2018-07-17] MEDS ORDERED: *HR* Dextrose 50 % in Water (Syg) 50 ML SYRINGE IVP PRN (10:58)
[2018-07-17] MEDS ORDERED: Insulin LISPRO 300 UNITS/3 ML VIAL SQ ONE (11:02)
[2018-07-17] MEDS: Insulin LISPRO 300 UNITS/3 ML VIAL SQ SCH ×3 (12:01→23:14)
[2018-07-17] MEDS: *HR* Heparin 5,000 UNIT/ML VIAL SQ SCH ×2 (13:49→22:59)
[2018-07-17] MEDS: Gabapentin 400 MG CAPSULE PO SCH ×2 (13:49→23:00)
[2018-07-17] MEDS: Acetaminophen 325 MG TABLET PO PRN (16:58)
--- NOTE | 2018-07-17 19:04 | Electrocardiograph Report ---
[facility] Test Date: 2018-07-17 Pat Name: Shanique Joshi Department: EXAM1 Room: [facility] Gender: F Rn Med Surg: : 1965 Requested By: Chi Antunez Order Number: [id number] Reading MD: Karla Soni Measurements Intervals Leslie Rate: 86 P: NE: QRS: 64 QRSD: 95 T: 15 QT: 383 QTc: 459 Interpretive Statements Atrial fibrillation Electronically Signed On 07-17-2018 19:02:35 EST by Karla Soni
[2018-07-17] MEDS: Venlafaxine XR (24 HR) 150 MG CAP.ER.24H PO SCH (22:59)
[2018-07-17] MEDS: Insulin DETEMIR 100 UNIT/ML X5UNITS SQ SCH (22:59)
[2018-07-18] MEDS: Acetaminophen 325 MG TABLET PO PRN ×2 (01:41→09:59)
[2018-07-18 05:55] LABS: Basophils # 0.1 K/mcL (0.0-0.2); Basophils % 0.9 %; Eosinophils # 0.5 K/mcL (0.0-0.6); Eosinophils % 5.3 %; Hematocrit 39.7 % (35.3-44.9); Hemoglobin 12.6 g/dL (11.5-15.4); Immature Granulocytes % 0.3 % (0-4); Lymphocytes # 2.4 K/mcL (0.6-4.6); Lymphocytes % 25.8 %; Mean Corpuscular HGB Conc 31.7 g/dL (31.6-35.5); Mean Corpuscular Hemoglobin 26.4 pg (28.0-33.3); Mean Corpuscular Volume 83.1 fL (83.0-100.0); Mean Platelet Volume 9.7 fL (9.4-12.4); Monocytes # 0.5 K/mcL (0.0-1.3); Monocytes % 4.9 %; Neutrophils # 5.7 K/mcL (1.6-8.9); Platelet Count 424 K/mcL (140-400); Red Blood Count 4.78 M/mcL (3.82-4.97); Red Cell Distribution Width 15.6 % (11.5-14.5); Segmented Neutrophils % 62.8 %
[2018-07-18] MEDS: 0.9 % Sodium Chloride 1,000 ML IVC SCH (06:07)
[2018-07-18] MEDS: *HR* Heparin 5,000 UNIT/ML VIAL SQ SCH ×3 (06:08→22:21)
[2018-07-18] MEDS: Insulin LISPRO 300 UNITS/3 ML VIAL SQ SCH ×3 (06:09→17:17)
[2018-07-18 06:18] LABS: BUN/Creatinine Ratio 16 (6-26); Blood Urea Nitrogen 15 mg/dL (6-20); Calcium 8.8 mg/dL (8.6-10.3); Carbon Dioxide 22 mEq/L (23-29); Chloride 109 mEq/L (98-107); Chol/HDL Ratio 6.2 (0-4.9); Cholesterol 180 mg/dL (< 200); Glucose 345 mg/dL (70-105); HDL Cholesterol 29 mg/dL (40-59); Magnesium 1.9 mg/dL (1.6-2.6); Osmolality,Calculated 301 (280-300); Phosphorous 3.4 mg/dL (2.7-4.5); Potassium 4.5 mEq/L (3.5-5.1); Sodium 138 mEq/L (136-145); Triglycerides 588 mg/dL (< 150); eGFR For Non-African Americans > 60 (> 60)
[2018-07-18 06:26] LABS: Thyroid Stimulating Hormone 0.202 mcIU/mL (0.340-5.600)
[2018-07-18 07:09] LABS: Estimated Average Glucose 295 mg/dl; Hemoglobin A1C 11.9 %
[2018-07-18] MEDS: Gabapentin 400 MG CAPSULE PO SCH ×3 (08:44→20:12)
[2018-07-18] MEDS: Lurasidone 20 MG TABLET PO SCH (08:44)
[2018-07-18] MEDS: Venlafaxine XR (24 HR) 150 MG CAP.ER.24H PO SCH ×2 (08:44→20:12)
[2018-07-18] MEDS: Fenofibrate 54 MG TABLET PO SCH (08:45)
[2018-07-18] MEDS: Multivit/Ca/Min/Fe/FA 1 TAB TABLET PO SCH (08:45)
[2018-07-18] MEDS: Famotidine 20 MG TABLET PO SCH (08:45)
--- NOTE | 2018-07-18 09:36 | Discharge Summary ---
- NOTES TO OUTPATIENT PROVIDER Notes to Outpatient Provider: follow up lipid panels - was counseled on improtance of diet. follow TFTs. A1c 11.9 - was counsled on improtance of compliance to inuslin regimen and diet Orders not resulted at time of discharge: Pending orders 07/17/18 08:36 Culture,Blood [BC] Stat 07/17/18 10:55 Respiratory Infection Panel [MOLMIC] Stat 07/17/18 14:00 Culture,Sputum with Gram Stain [RM] Stat Date of Encounter: 07/18/18 Time of Encounter: 09:32 - Discharge Diagnosis (1) Hyperosmolar non-ketotic state in patient with type 2 diabetes mellitus Priority: Primary Status: Acute (2) Community acquired pneumonia Priority: Secondary Status: Acute Qualifiers: Laterality: right Lung location: lower lobe of lung Qualified Code(s): J18.1 - Lobar pneumonia, unspecified organism (3) Sepsis Priority: Secondary Status: Acute Qualifiers: Sepsis type: sepsis due to unspecified organism Qualified Code(s): A41.9 - Sepsis, unspecified organism (4) Obesity (BMI 30-39.9) Priority: Secondary Status: Acute (5) DVT prophylaxis Priority: Secondary Status: Acute (6) Hyperlipidemia Priority: Secondary Status: Acute (7) Uncontrolled diabetes mellitus Priority: Secondary Status: Acute Qualifiers: Diabetes mellitus type: type 2 Glycemic state: with hyperglycemia Qualified Code(s): E11.65 - Type 2 diabetes mellitus with hyperglycemia Hospital course: "Ms. Joshi is a 52 year old female with history of IDDM and bipolar disorder presented to the emergency department with complaint of elevated blood sugar. As per patient she woke up this morning and checked her blood sugar which was more than 500 gave herself her long-acting insulin and started to make herself breakfast however she was unable to administer her sliding-scale insulin as she has ran out of the medication and has not been able to pick it up from the pharmacy. She ate her breakfast however she became lightheaded and recheck her blood sugar which was again above 500 so she decided to come to the emergency department for further management of her blood sugar. She does report getting lightheaded when her blood sugar is high or low, denies syncope, falls, loss of consciousness,seizure like activity, dysuria, heat or cold intolerance. She does report that she received the influenza vaccination last week and subsequently developed cough with productive green sputum. She reports that she makes about 2-3 tablespoons of green sputum a day. Her cough is also associated with minimal shortness of breath, she denies fever chills, chest pain, nausea, vomiting, diarrhea, sick contacts or recent travels." patient presented to the hospital with above presentation While in the emergency department her blood glucose was found to be 550, chest x-ray showed possible pneumonia, she had leukocytosis and lactic acidosis so she was admitted for further management of her blood glucose level along with pneumonia. She was started on her home dose insulin along with sliding scale with improvement of the blood glucose level. it ws documented by the manager pharmacy that her long acting insulin is 43 units BID however patient reports that it has been changed to 64 units BID. staff was told to change the dosage in her medical records She was started on antibiotic for pneumonia with resolution of her white blood cell count. was disharegd on oral ABx to complete a 7 day course. Uagx were negative, BCx NGTD. for PCP to follow sputum cx and viral panel. Blood glucose level was monitored throughout the hospital stay and it remained stable. Lipid panel showed elevated triglycerides and cholesterol level she was counseled on importance of compliance to her statins and fibrates along with diet and nutrition along with exercise. A!c level was 11.9- she was counseled on importance of compliance of her insulins. she reports that her has picked her sliding scale insulin from the pharmacy. she was told to keep a glucose log of her finger sticks and take to her PCP for adjustment of her insulins. TSH was found to be 0.202 for PCP to follow TFTS and work up as OP. she uderstadns to follow at the closest ED if her blood glucose is uncontrolled or if she develops worsening cough, fever. Discharge discussed with: patient, nurse - Time Spent with Patient Total time spent providing and/or coordinating discharge services: Less than 30 minutes - Discharge Medications Prescriptions: Doxycycline 100 mg PO BID 6 Days #12 capsule Home Medications: Atorvastatin [Lipitor] 40 mg PO HS 08/29/16 [History] Black Cohosh 40 mg PO QAM 08/29/16 [History] Docusate [Colace] 100 mg PO BID 08/29/16 [History] Metformin HCl [Glucophage] 1,000 mg PO BID 08/29/16 [History] Multivitamin [One Daily Essential] 1 tab PO DAILY 08/29/16 [History] Venlafaxine HCl [Venlafaxine HCl ER] 150 mg PO BID 08/29/16 [History] Gabapentin [Neurontin] 800 mg PO TID 10/31/17 [History] Insulin ASPART [Novolog Flexpen] 0 - 5 unit SQ TID PRN 10/31/17 [History] Ranitidine HCl [Zantac] 300 mg PO DAILY 10/31/17 [History] ALPRAZolam [Xanax 1 MG Tablet] 1 mg PO BID PRN 07/17/18 [History] Benztropine Mesylate 0.5 mg PO BID 07/17/18 [History] Diclofenac Sodium [Voltaren] 50 mg PO Q8HR PRN 07/17/18 [History] Fenofibrate [Tricor] 54 mg PO DAILY 07/17/18 [History] Guanfacine HCl 1 mg PO DAILY 07/17/18 [History] HydrOXYzine 10 mg PO QID 07/17/18 [History] Lurasidone HCl [Latuda] 60 mg PO DAILY 07/17/18 [History] Pantoprazole Sodium [Protonix] 40 mg PO DAILY 07/17/18 [History] Quetiapine Fumarate [Seroquel] 200 mg PO HS 07/17/18 [History] Doxycycline 100 mg PO BID 6 Days #12 capsule 07/18/18 [Rx] Insulin DETEMIR [Levemir Flextouch] 64 unit SQ BID #0 07/18/18 [Rx] Allergies/Adverse Reactions: Allergy/AdvReac Type Severity Reaction Status Date / Time No Known Allergies Allergy Verified 06/05/18 09:17 Date of admission: 07/17/18 10:30 Primary care physician: Nellie Newton CNP Consults: 07/17/18 11:48 Consult to Production Graphic Designer [CONS] Routine Reason for SW Consult: Patient reports insurance concerns - Constitutional Vitals: Temp Pulse Resp BP Pulse Ox 97.8 F 82 16 119/82 93 07/18/18 07:40 07/18/18 07:40 07/18/18 07:40 07/18/18 07:40 07/18/18 07:40 Exam: General: Patient is alert, oriented, no acute distress, obese Head: atraumatic, normocephalic, Eye: normal appearance, PERRL, no scleral icterus, no conjunctival injection ENT: mucous membranes moist, normal external ear exam, edentolous Neck: normal inspection, trachea midline, full ROM, no carotid bruits Chest: normal inspection, symmetric chest rise Respiratory: Distant breath sounds secondary to body habitus, Good respiratory effort. Bilateral breath sounds are clear without with minimal crackles Cardiovascular: Distant heart sounds secondary to body habitus Regular rate and rhythm. s1 and s2 No clicks, rubs, gallops, or murmors. Abdomen: Bowel sounds present normoactive x-4 quadrants. Abdomen is soft, nondistended. no Epigastric tenderness. No guarding or rebound. No organomegaly noted, obese musculoskeletal: Spontaneously moving all extremities. no edema, no calf tenderness Skin: warm, dry, intact. Neuro: Alert and oriented x4. Sensation light touch intact. Cranial nerves 2- 12 is intact. No focal deficit - Patient Status Disposition: Home, Self-Care Condition: Fair - Discharge Instructions Forms: ED Satisfaction Letter, Work/School Release - Diet and Activity Activity: increase activity as tolerated Diet: advance to your usual diet, diabetic diet, low fat, low cholesterol
[2018-07-18] MEDS: Insulin DETEMIR 100 UNIT/ML X5UNITS SQ SCH ×2 (09:59→21:50)
[2018-07-18] MEDS ORDERED: Azithromycin 500 MG in D5% in Water 250 ML IVPB SCH (11:00)
[2018-07-18] MEDS ORDERED: cefTRIAXone 2,000 MG in Water for inj. (sterile) 20 ML 20 ML IVPB SCH (11:00)
[2018-07-18] MEDS: Doxycycline 100 MG CAPSULE PO SCH ×2 (11:11→20:12)
[2018-07-18] MEDS ORDERED: Insulin DETEMIR 100 UNIT/ML X5UNITS SQ ONE (11:37)
[2018-07-18] MEDS: ALPRAZolam 1 MG TABLET PO PRN (13:10)
[2018-07-18] MEDS ORDERED: Insulin LISPRO 300 UNITS/3 ML VIAL SQ STA (15:07)
[2018-07-19] MEDS: Insulin LISPRO 300 UNITS/3 ML VIAL SQ SCH ×3 (00:06→08:57)
[2018-07-19] MEDS: *HR* Heparin 5,000 UNIT/ML VIAL SQ SCH (05:51)
[2018-07-19 07:42] VITALS: BP 152/89
--- NOTE | 2018-07-19 07:59 | Discharge Summary ---
Orders not resulted at time of discharge: Pending orders 07/17/18 08:36 Culture,Blood [BC] Stat 07/17/18 10:55 Respiratory Infection Panel [MOLMIC] Stat 07/17/18 14:00 Culture,Sputum with Gram Stain [RM] Stat Date of Encounter: 07/19/18 Time of Encounter: 07:55 - Discharge Diagnosis (1) Hypertriglyceridemia Priority: Secondary Status: Chronic (2) Chronic GERD Priority: Secondary Status: Chronic (3) Community acquired pneumonia Priority: Secondary Status: Acute Qualifiers: Laterality: right Lung location: lower lobe of lung Qualified Code(s): J18.1 - Lobar pneumonia, unspecified organism (4) Hyperosmolar non-ketotic state in patient with type 2 diabetes mellitus Priority: Primary Status: Acute (5) Obesity (BMI 30-39.9) Priority: Secondary Status: Chronic (6) Sepsis Priority: Secondary Status: Acute Qualifiers: Sepsis type: sepsis due to unspecified organism Qualified Code(s): A41.9 - Sepsis, unspecified organism (7) Hyperlipidemia Priority: Secondary Status: Chronic Qualifiers: Hyperlipidemia type: mixed hyperlipidemia Qualified Code(s): E78.2 - Mixed hyperlipidemia Hospital course: Ms. Joshi is a 52 year old female with history of IDDM and bipolar disorder presented to the emergency department with complaint of elevated blood sugar. As per patient she woke up this morning and checked her blood sugar which was more than 500 gave herself her long-acting insulin and started to make herself breakfast however she was unable to administer her sliding-scale insulin as she has ran out of the medication and has not been able to pick it up from the p harmacy. She ate her breakfast however she became lightheaded and recheck her blood sugar which was again above 500 so she decided to come to the emergency department for further management of her blood sugar. She does report getting lightheaded when her blood sugar is high or low, denies syncope, falls, loss of consciousness,seizure like activity, dysuria, heat or cold intolerance. She does report that she received the influenza vaccination last week and subsequently developed cough with productive green sputum. She reports that she makes about 2-3 tablespoons of green sputum a day. Her cough is also associated with minimal shortness of breath, she denies fever chills, chest pain, nausea, vomiting, diarrhea, sick contacts or recent travels." patient presented to the hospital with above presentation While in the emergency department her blood glucose was found to be 550, chest x-ray showed possible pneumonia, she had leukocytosis and lactic acidosis so she was admitted for further management of her blood glucose level along with pneumonia. She was started on her home dose insulin along with sliding scale with improvement of the blood glucose level. it was documented by the pharmacy services representative that her long acting insulin is 43 units BID however patient reports that it has been changed to 64 units BID. staff was told to change the dosage in her medical records She was started on antibiotic for pneumonia with resolution of her white blood cell count. sputum growing GNR, discharge on ncefdinor for 10 days. Uagx were negative, BCx NGTD. for PCP to follow sputum cx and viral panel. Blood glucose level was monitored throughout the hospital stay and it remained stable. Lipid panel showed elevated triglycerides and cholesterol level she was counseled on importance of compliance to her statins and fibrates along with diet and nutrition along with exercise. A1c level was 11.9- she was counseled on importance of compliance of her insulins. BG improved with her home dose levemir 64 unit BID. DM diet was educated she reports that her has picked her sliding scale insulin from the pharmacy. she was told to keep a glucose log of her finger sticks and take to her PCP for adjustment of her insulins. TSH was found to be 0.202 for PCP to follow TFTS and work up as OP. she ahs PCP ;;Appoint on 08/08/2018 Time spent discussing smoking cessation with patient: 3 to 10 minutes - Time Spent with Patient Total time spent providing and/or coordinating discharge services: Less than 30 minutes - Discharge Medications Prescriptions: Cefdinir [Omnicef] 300 mg PO BID 10 Days #20 capsule Home Medications: Atorvastatin [Lipitor] 40 mg PO HS 08/29/16 [History] Black Cohosh 40 mg PO QAM 08/29/16 [History] Docusate [Colace] 100 mg PO BID 08/29/16 [History] Metformin HCl [Glucophage] 1,000 mg PO BID 08/29/16 [History] Multivitamin [One Daily Essential] 1 tab PO DAILY 08/29/16 [History] Venlafaxine HCl [Venlafaxine HCl ER] 150 mg PO BID 08/29/16 [History] Gabapentin [Neurontin] 800 mg PO TID 10/31/17 [History] Insulin ASPART [Novolog Flexpen] 0 - 5 unit SQ TID PRN 10/31/17 [History] Ranitidine HCl [Zantac] 300 mg PO DAILY 10/31/17 [History] ALPRAZolam [Xanax 1 MG Tablet] 1 mg PO BID PRN 07/17/18 [History] Benztropine Mesylate 0.5 mg PO BID 07/17/18 [History] Diclofenac Sodium [Voltaren] 50 mg PO Q8HR PRN 07/17/18 [History] Fenofibrate [Tricor] 54 mg PO DAILY 07/17/18 [History] Guanfacine HCl 1 mg PO DAILY 07/17/18 [History] HydrOXYzine 10 mg PO QID 07/17/18 [History] Lurasidone HCl [Latuda] 60 mg PO DAILY 07/17/18 [History] Pantoprazole Sodium [Protonix] 40 mg PO DAILY 07/17/18 [History] Quetiapine Fumarate [Seroquel] 200 mg PO HS 07/17/18 [History] Insulin DETEMIR [Levemir Flextouch] 64 unit SQ BID #0 07/18/18 [Rx] Cefdinir [Omnicef] 300 mg PO BID 10 Days #20 capsule 07/19/18 [Rx] Allergies/Adverse Reactions: Allergy/AdvReac Type Severity Reaction Status Date / Time No Known Allergies Allergy Verified 06/05/18 09:17 Date of admission: 07/17/18 10:30 Primary care physician: Nellie Newton CNP Consults: 07/17/18 11:48 Consult to Floor Coverings Salesperson [CONS] Routine Reason for SW Consult: Patient reports insurance concerns - Constitutional Vitals: Temp Pulse Resp BP Pulse Ox 98.0 F 90 16 152/89 94 07/19/18 07:30 07/19/18 07:30 07/19/18 07:30 07/19/18 07:30 07/19/18 07:30 General appearance: Present: A&O X 3 Exam: General: Patient is alert, oriented, no acute distress, obese Head: atraumatic, normocephalic, Eye: normal appearance, PERRL, no scleral icterus, no conjunctival injection ENT: mucous membranes moist, normal external ear exam, edentolous Neck: normal inspection, trachea midline, full ROM, no carotid bruits Chest: normal inspection, symmetric chest rise Respiratory: Distant breath sounds secondary to body habitus, Good respiratory effort. Bilateral breath sounds are clear without with minimal crackles Cardiovascular: Distant heart sounds secondary to body habitus Regular rate and rhythm. s1 and s2 No clicks, rubs, gallops, or murmors. Abdomen: Bowel sounds present normoactive x-4 quadrants. Abdomen is soft, nondistended. no Epigastric tenderness. No guarding or rebound. No organomegaly noted, obese musculoskeletal: Spontaneously moving all extremities. no edema, no calf tenderness Skin: warm, dry, intact. Neuro: Alert and oriented x4. Sensation light touch intact. Cranial nerves 2- 12 is intact. No focal deficit - Patient Status Disposition: Home, Self-Care Condition: Fair Functional capacity at discharge: independent ambulation Overall status at discharge: patient is back to baseline - Discharge Instructions Follow Up With: Nellie Newton PROFESSOR OF VOICE [Primary Care Provider] - Forms: ED Satisfaction Letter, Work/School Release Additional Instructions: Follow-up appointments: If there is not an appointment listed below, please call your physician and schedule a follow-up appointment. If you have congestive heart failure and your symptoms return, make an appointment with your physician. Medication List: Carry an up to date list of medications you are taking at all time. We have given you an updated medication list including any new medications that you have been prescribed. Please provide that list to your primary provider Symptoms: If your condition changes or you experience any of the following symptoms, notify your physician immediately: Unusual or worsening pain, fever, persistent nausea and vomiting, bleeding, increase in swelling (especially in your legs), sudden weight gain, extreme dizziness, chest pain, increased drainage or redness from a wound or incision. Go to the emergency department if you experience a problem with breathing. Weights: If you have a history of swelling or shortness of breath, weigh yourself daily and notify your physician if you have a weight gain of two or more pounds in one day or 5 or more pounds in a week. If you experience any of the warning signs for stroke: Sudden numbness or weakness of the face, arm or leg; especially on one side of the body, sudden confusion, trouble speaking or understanding, sudden trouble seeing in one or both eyes, sudden trouble walking, dizziness, loss of balance or coordination, sudden sever headache with no cause; Call 911 or go to the emergency room. Stroke is a medical emergency. Some risk factors for stroke: Age, cigarette smoking, diabetes, excessive alcohol consumption, family history, high blood pressure, overweight, physical inactivity, prior stroke, heart attack, diagnosis of carotid artery stenosis or other artery disease. If you smoke, STOP: Smoking or tobacco use significantly increases your risk of heart and lung disease. Your chance of disease greatly increases if you continue to smoke. For more information, call the [place] tobacco quit line for smoking cessation 1-636-PPQP-NOW ( ) - Diet and Activity Diet: diabetic diet
[2018-07-19] MEDS: Insulin DETEMIR 100 UNIT/ML X5UNITS SQ SCH (08:56)
[2018-07-19] MEDS: Multivit/Ca/Min/Fe/FA 1 TAB TABLET PO SCH (08:59)
[2018-07-19] MEDS: ALPRAZolam 1 MG TABLET PO PRN (08:59)
[2018-07-19] MEDS: Venlafaxine XR (24 HR) 150 MG CAP.ER.24H PO SCH (08:59)
[2018-07-19] MEDS: Lurasidone 20 MG TABLET PO SCH (08:59)
[2018-07-19] MEDS: Fenofibrate 54 MG TABLET PO SCH (08:59)
[2018-07-19] MEDS: Gabapentin 400 MG CAPSULE PO SCH (09:00)
[2018-07-19] MEDS: Famotidine 20 MG TABLET PO SCH (09:00)
--- NOTE | 2018-07-21 20:30 | Electrocardiograph Report ---
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
== END 2018-07-19 09:28 | disposition home or self-care (01) ==
LOC: 3NENU 07:20 → EMEROOARM 07:20 → SUATTDRO 10:30 → 3NENU 11:37
PROVIDERS: ADMIT Internal Medicine; ATTEND Hospitalist